=== PATIENT | female | born 1960 | race Caucasian/White ===

== ENCOUNTER 2016-10-30 22:43 | Inpatient (IN) | payer OTHER, BC ==
[~2016-10-30] VITALS: Ht 152.4 cm; Wt 60.1 kg
--- NOTE | ~2016-10-30 | WRIGHTHP ---
[place], [place] PATIENT HISTORY AND PHYSICAL EXAM [id number] #: [id number] ROOM: 314 DOCTOR: LAMBERTO YOON MD BIRTHDATE: [birth year] DOS: 10/31/2016 INITIAL PSYCHIATRIC EVALUATION. CHIEF COMPLAINT: "I'm just so depressed and anxious, I don't know what to do." HISTORY OF PRESENT ILLNESS: This is a 56-year-old white female who was sent from [facility]. The patient was just discharged from a psychiatric unit and went home and was absolutely overwhelmed per her report. She had not been sleeping or eating well. She is in constant pain. She reports that she is so depressed she just thinks of suicide and does not think that there is any way to go on. She is very anxious as well and very much pain ridden. She is admitted now to rule out organic factors, to stabilize on medication and to engage in individual and henriquez milieu activity. PAST PSYCHIATRIC HISTORY: Other than the previous psychiatric admission is unknown. The patient looks like she has been following through [facility]. An ORS report, however, shows her to be receiving multiple benzodiazepines from several physicians. This is something that will be dealt with later in her stay. MENTAL STATUS: The patient is alert and oriented. Mood is depressed with anxious overtones. There is no bruce or hypomania. There are no gross psychotic symptoms. Memory is intact. DIAGNOSES: Major depression, recurrent, severe; dysthymic disorder; and anxiety disorder, not otherwise specified. PLAN: I will discontinue her Trintellix and Abilify in lieu of Cymbalta 30 mg twice a day. She had been on Cymbalta in the past per her report, but was unclear of the dose. More often than not the dose of Cymbalta for outpatients tends to be low and I will push her aggressively to the high range. I will augment this currently with some Klonopin 0.5 t.i.d. in as much to prevent any withdrawal symptoms as it is to acutely treat her anxiety. I will augment the pain control with Zostrix high potency cream. I will defer other treatment of the pain to the hospitalist at this point. Will want her to sign a release of information giving us permission to talk to or her outpatient provider whoever that turns out to be, so we can bring to their attention her ORS report and we can plan proactively then in the future to prevent this from happening. We will engage her in individual and henriquez milieu activity with the plan to return home when psychiatrically stable. [place], [place] PATIENT HISTORY AND PHYSICAL EXAM NAME: TOSHA HALL UNIT #: [id number] ROOM: 314 DOCTOR: LAMBERTO YOON MD BIRTHDATE: [birth year] LAMBERTO YOON MD CM:HISPHYS:PATIENT HISTORY AND PHYSICAL EXAMINATION 3 1007 LAMBERTO YOON MD 10/31/16 1006 interface
--- NOTE | ~2016-10-30 | PR ---
[place], [place] PROGRESS NOTE NAME: TOSHA HALL UNIT #: [id number] ROOM: 315 DOCTOR: LAMBERTO YOON MD BIRTHDATE: [birth year] DOS: 11/02/2016 CHIEF COMPLAINT: "I am feeling better, except for the middle of the day it is really rough." SUMMARY OF THE VISIT: The patient was interviewed in the dining area. She engaged readily in conversation and reported to me that she is feeling better. Her mood is brighter and she is less anxious, except for the midday time, which she feels that the anxiety becomes overwhelmingly and she is ready to crawl out of her skin. She convincingly denies any medication side effects and states that she is not noticing any sedation, somnolence or any other side effects throughout the day. MENTAL STATUS: She is alert and oriented. Mood does seem to be trending towards euthymia. Affect is more appropriate. There are no symptoms of bruce or hypomania. There are no overt auditory or visual hallucinations. No delusions were voiced. No paranoia is present. Short, intermediate and long-term memories are intact. PLAN: I will maintain her Cymbalta dose at 30 mg in the morning and 60 mg at night. I will double her Klonopin dose from 0.5 mg 3 times a day to 1 mg 3 times a day, monitor for risk, benefit over the next 24-48 hours, engage in individual and henriquez milieu activity with the plan to return home or to the least restrictive environment when psychiatrically stable. LAMBERTO YOON MD CM:PNTRANS [id number] LAMBERTO YOON MD 11/02/16 1047 interface
--- NOTE | ~2016-10-30 | PR ---
[place], [place] PROGRESS NOTE [id number] #: [id number] ROOM: 315 DOCTOR: LAMBERTO YOON MD BIRTHDATE: [birth year] DOS: 11/01/2016 CHIEF COMPLAINT: "I feel a little better, thank you." SUMMARY OF THE VISIT: The patient was interviewed in the dining area where she was sitting and eating breakfast. She did report that she tolerated the medication changes well and is tolerating both the Klonopin and the Cymbalta without any side effects. She did report a slight improvement in her mood and pain control. She denies any other issues. MENTAL STATUS: She is alert and oriented. Mood does seem to be still depressed with some anxious, overtones, but she is trending toward improvement. There is no hypomania or bruce. There are no overt auditory or visual hallucinations. No delusions, no paranoia. Short term, intermediate and long-term memory are intact. PLAN: I will go ahead and increase Cymbalta to 30 mg in the morning and 60 mg at night. Continue to engage her in individual and henriquez milieu activity with the ultimate plan to discharge home when psychiatrically stable. LAMBERTO YOON MD CM:PNTRANS 234 LAMBERTO YOON MD 11/01/16 2341 interface
--- NOTE | ~2016-10-30 | PR ---
[place], [place] PROGRESS NOTE NAME: TOSHA HALL UNIT #: [id number] ROOM: 315 DOCTOR: LAMBERTO YOON MD BIRTHDATE: [birth year] DOS: 11/03/2016 CHIEF COMPLAINT: "I'm feeling better, but I'm still anxious." SUMMARY OF THE VISIT: The patient was interviewed as she sat in the dining area, eating her breakfast and interacting with female peers. She stopped engaging in conversation and reported that overall she sees a trend in improvement. She is feeling less depressed and more energized. She is still noticing some anxiety throughout the day and there is still some residual depression. She is open to allowing me to adjust her medications further. She is beginning to voice positive plans for the future and positive discharge plans. MENTAL STATUS: She is alert and oriented. Mood does seem to be strongly trending towards euthymia. Affect is much more appropriate. There are no symptoms suggestive of bruce or hypomania. There are no overt auditory or visual hallucinations. No delusions or paranoia are voiced. Memory for the most part is fully intact. PLAN: I will go ahead at this point in time and increase her Cymbalta to its maximum dose of 120 mg given in a 60 mg b.i.d. dosing. This should help both the depression and the anxiety. I will maintain her current Klonopin dose where it is. My plan ultimately should she be my outpatient, would be to discontinue the Klonopin within a matter of 2-4 weeks. We will continue to engage her in individual and henriquez milieu activity with the ultimate plan to return home when psychiatrically stable. LAMBERTO YOON MD CM:PNTRANS [id number] LAMBERTO YOON MD 11/04/16 0259 interface
--- NOTE | ~2016-10-30 | DS ---
[place], [place] DISCHARGE SUMMARY [id number] #: [id number] ROOM: 315 DOCTOR: LAMBERTO YOON MD BIRTHDATE: [birth year] DOS: 11/04/2016 CHIEF COMPLAINT: "I am just so depressed and anxious I don't know what to do." HISTORY OF PRESENT ILLNESS: This is a 56-year-old white female who was sent here to the Behavioral Health Care Unit at [facility] from [facility]. The patient was just discharged from a psychiatric unit and went home and was absolutely overwhelmed and started to feel suicidal. She reports that since her discharge, she has not been sleeping well or eating well. She is in constant pain. She is so depressed she thinks of suicide daily and does not think that there is any way to go on. She is very anxious and is also very much pain reddened. She is admitted now to rule out organic factors to stabilize on medication, to engage in individual and henriquez milieu activity, returning home when stable. PAST MEDICAL HISTORY: Remarkable for a lengthy history of depression and pain. SUMMARY OF HOSPITAL COURSE: The patient was admitted to the unit where her Trintellix and Abilify were discontinued in lieu of Cymbalta 30 mg twice daily. She was deliberately started on a higher dose because she reports having been on it before, but believes she was on a smaller dose. Very quickly the Cymbalta was increased from 30 mg twice a day to 30 mg in the morning and 60 mg at night and then ultimately to its target dose of 60 mg twice daily. Given her overriding anxiety, she was started on Klonopin 0.5 mg 3 times a day. This did help some, but she noticed that it did not carry her consistently through the day. Klonopin was eventually increased to 1 mg 3 times a day. With the combination of high dose Cymbalta and Klonopin, the patient noticed alleviation of her anxiety, a diminishment of her depression and alleviation of her pain. She was much more pleasant and conversant, was able to think positively about the future and voiced positive plans for her future. She was discharged then on November 04 to return home. She will have followup at [facility]. MENTAL STATUS AT DISCHARGE: The patient is alert and oriented to person, place and time. Mood is overwhelmingly bright, pleasant and conversant. Her speech rate and pattern is within normal limits. There is no hypomania or bruce. There are no auditory or visual hallucinations. Memory is intact. She convincingly denies suicidal thoughts, homicidal thoughts or any self-injurious thoughts. DIAGNOSES: Major depression, recurrent, severe; dysthymic disorder and anxiety disorder, not otherwise specified. PLAN: The patient is to return home. All of her prescriptions except the Klonopin have been e scribed. The Klonopin prescription has been printed. She will follow up at [facility] services. [place], [place] DISCHARGE SUMMARY [id number] UNIT #: [id number] ROOM: [facility] DOCTOR: LAMBERTO YOON MD BIRTHDATE: [birth year] LAMBERTO YOON MD CM:DISCHARG [id number] LAMBERTO YOON MD 11/04/162016 interface
[2016-10-30] MEDS ORDERED: ABILIFY5 MG PO (23:21)
[2016-10-30] MEDS ORDERED: KLONOPIN1 M1 PO (23:21)
[2016-10-30] MEDS ORDERED: REMERON45 M1 PO (23:22)
[2016-10-30] MEDS ORDERED: TRAZODONE100 MG PO (23:23)
[2016-10-30] MEDS ORDERED: PROTONIX40 MG PO (23:26)
[2016-10-30] MEDS ORDERED: Symbicort 160-4.5 mc INH (23:32)
--- NOTE | 2016-10-31 00:50 | NUR ---
TOSHA HALL a 56 year old F admitted via stretcher from the ADMITTING as a voluntary admission. Arrived on unit at 0050. ALLERGIES: VISTARIL. Vital signs are: 97.0-87-18 100/66. The client signed the following forms with stated understanding: Authorization For The Release of Medical Information, Clothing List, Consent to Voluntary Admission and Hospitalization, Consent and Release Forms/Receipt of Rights, Acknowledgement of Advance Directive Information, Behavioral Health Consent Form, and Informed Consent of Medications. Admitted under the services of [facility]. A search was conducted and hazardous articles were removed. Client was oriented to the unit. RHONDA LE
[2016-10-31 01:13] VITALS: BP 100/66
[2016-10-31] MEDS ORDERED: ESTRADIOL1 MG PO (01:16)
[2016-10-31] MEDS ORDERED: TERCONAZOLE20 GM V (01:16)
--- NOTE | 2016-10-31 02:10 | NUR ---
DR. ROGERS MADE AWARE OF NEW ADMISSION CONSULT FOR MED MANAGMENT UNDER DR. SMITH. MED REC AND MEDICAL HISTORY COMPLETED.
--- NOTE | 2016-10-31 06:11 | NUR ---
PT SLEPT 4 HOURS WITH OUT INTURRUPTION. COOPERATIVE WITH ASSESSMENT WITH ANXIOUS AND IRRITABLE MOOD. PT CONCERNED WITH NOT HAVING KLONIPIN ORDERED. ORIENTED TO ROOM AND UNIT RULES.
[2016-10-31 06:45] LABS: BASO % 0.2 % (0.0-1.0); EOS # 0.2 10*3/uL (0.0-0.4); EOS % 2.5 % (1.0-4.0); HEMATOCRIT 42.1 % (37.0-47.0); HEMOGLOBIN 13.9 g/dl (12.0-16.0); LYMPH # 1.7 10*3/uL (1.3-4.4); LYMPH % 26.5 % (27.0-41.0); MEAN CELL VOLUME 90.9 fl (81.0-99.0); MEAN PLATELET VOLUME 9.5 fl (9.6-12.3); MONO # 0.5 10*3/uL (0.1-1.0); MONO % 7.7 % (3.0-9.0); NEUT % 62.9 % (47.0-73.0); PLATELET COUNT AUTOMATED 223 10*3/uL (130-400); RED BLOOD COUNT 4.63 10*6/uL (4.10-5.10); RED CELL DISTRI WIDTH 13.4 % (0-14.5); WHITE BLOOD COUNT 6.3 10*3/uL (4.8-10.8)
[2016-10-31 07:31] LABS: ALBUMIN 3.2 gm/dl (3.1-4.5); ALKALINE PHOSPHATASE 112 U/L (45-117); BUN 16 mg/dl (7-24); CHLORIDE 108 mmol/L (98-107); CHOLESTEROL 230 mg/dL (<200); CREATININE 0.72 mg/dL (0.55-1.02); HDL CHOLESTEROL 41 mg/dl (40-60); LDL CHOLESTEROL 146 mg/dL (9-159); POTASSIUM 3.9 mmol/L (3.5-5.1); SGOT/AST 22 IU/L (3-35); SGPT/ALT 55 U/L (12-78); SODIUM 143 mmol/L (136-145); TOTAL PROTEIN 7.1 gm/dL (6.4-8.2); TRIGLYCERIDES 213 mg/dl (<150); VLDL CHOLESTEROL 43 mg/dL (6-40)
[2016-10-31 08:05] VITALS: BP 103/68
[2016-10-31 08:07] LABS: VITAMIN D, 25-HYDROXY 31.3 ng/mL (30-100)
--- NOTE | 2016-10-31 08:17 | NUR ---
[facility] HE FOLLOWING: DR. YOON, SHEEP AND WHEAT FARMER, RNs, SWs, AT AND DIRECTOR. DR. YOON REPORTES THAT PT IS SEEN AT [facility]. dR.. YOON WOULD LIKE THE MEDICAL RECORDE IF PT WILL SIGN A RELEASE. PENDING DISCHARGE FOR MONDAY.
--- NOTE | 2016-10-31 11:20 | NUR ---
Excerise/Trivia Excercise helps with mobility,circulation and staying active,trivia helps with memory,socialization, concentration and thinkinPatient did attend group this morning as well as participated. Patient seemed withdrawn not talking or socializing with others. Patient "needed" to leave the room for a bit to talk to someone about her meds. Patient came back into the room soon after and again started participating in the game, but still with drawn from others
--- NOTE | 2016-10-31 14:30 | NUR ---
ALERT AND ORIENTED X4. MOOD IS DEPRESSED WITH FLAT AFFECT. VOICES FLEETING SUICIDAL THOUGHTS THAT "COME AND GO" WITHOUT A PLAN. VERBALLY CONTRACTED FOR SAFETY. STATES "A LITTLE BIT" IN REGARDS TO SLEEP LAST NIGHT. NO HALLUCINATIONS OR DELUSIONS NOTED. NO S/S ANXIETY NOTED, HOWEVER, PT STATES "IM JUST SO NERVOUS" THEN MORNING AFTER ASKING FOR "KLONOPIN." EDUCATED PATIENT OF NEW MEDICATION CHANGES. PT VERBALIZES UNDERSTANDING. POSTIVIVE PEERS INTERACTIONS NOTED. WILL CONTINUE TO ENCOURAGE ATTENDENCE AND PARTICIPATION AT GROUP THERAPY. WILL CONTINUE Q15 MIN SAFETY OBSERVATION CHECKS PER ORDERS.
[2016-10-31 19:55] VITALS: BP 100/85
--- NOTE | 2016-11-01 00:07 | NUR ---
24 HR chart check completed.
--- NOTE | 2016-11-01 06:30 | NUR ---
PT HAS BEEN OBSERVED ON Q 15 MIN & HAS SLEPT QUIETLY THROUGHOUT THE SHIFT PAST 2244.
[2016-11-01 08:00] VITALS: BP 98/68
--- NOTE | 2016-11-01 08:12 | NUR ---
Fall Craft This helps patient with mobility, concentration,thinking socializing and self esteem. Patient did attend group as well as participate. Patient is withdrawn from other patients not socializing at all. Patient will speak to me if need be and will speak if spoken to but does not initiated conversation with her peers
--- NOTE | 2016-11-01 13:41 | NUR ---
Reading/Reminiscing This helps with memory,concentration, thinking socialization Patient did attend group as well as participated. Patient contributed many stories of growing up amonst a tight knit family and andre. patient also enjoyed group and remembering things from the past
--- NOTE | 2016-11-01 16:16 | NUR ---
MOOD IS STABLE AND EUTHYMIC. HAS NOT VOICED ANY SI/HI. AFFECT IS BRIGHTER. DEPRESSION IS LESS SO TODAY. MEDICATION COMPLIANT WITHOUT DIFFFICULTY. ATTENDING AND PARTICIPATING IN GROUP THERAPIES. UP ALL DAY IN DINNING ROOM. POSITIVE PEER INTERACTIONS. DENIES ANY SENSORY DISTURBANCES AND NONE ARE NOTED. APPETITE GOOD FOR MEALS.
[2016-11-01 20:20] VITALS: BP 122/75
--- NOTE | 2016-11-01 22:40 | NUR ---
24 HR chart check completed.
--- NOTE | 2016-11-02 06:04 | NUR ---
PT HAS BEEN OBSERVED ON Q 15 MIN CHECKS & HAS SLEPT QUIETLY THROUGHOUT THE SHIFT PAST 2244.
--- NOTE | 2016-11-02 08:14 | NUR ---
Who Am I?/Positive traits This group helps patients with self esteem, Concentration, thinking and socializing Patient did attend group as well as participated. This project was to be about what the patient thought of themselves. Patient is very focused on the of her nephew and stated she was doing the project about him. I explained that this was about the patient not other people patient stated "well my Nephew and I are alike." Patient was very encouraging to the other patients stating positive traits that she thought of them. Patient does not seem to think of herself in a positive light
[2016-11-02 08:17] VITALS: BP 110/75
--- NOTE | 2016-11-02 08:40 | NUR ---
Treatment Team was held with the following: Dr. Galeana. SHEET METAL INSTALLER, Medical Student, RN, AT, and SW. Dr. Galeana requesting ron t Pt sign disclosure form for [facility] to alert about Pt shoppning for benzos. Dr. Galeana only writing script for 2 weeks. Pending discharge for Monday.
--- NOTE | 2016-11-02 11:49 | NUR ---
Mariah Ross in to see Anca and orders were received to obtain UA for testing. Specimen obtained and sent to lab @ this time.
[2016-11-02 12:04] LABS: BILIRUBIN NEGATIVE (NEGATIVE); BLOOD NEGATIVE (NEGATIVE); CLARITY CLEAR (CLEAR); COLOR YELLOW (YELLOW); GLUCOSE NEGATIVE (NEGATIVE); KETONE NEGATIVE (NEGATIVE); LEUKO ESTERASE NEGATIVE (NEGATIVE); NITRITE NEGATIVE (NEGATIVE); PH 5.5 (5.0-9.0); SPECIFIC GRAVITY <= 1.005 (1.005-1.030); UROBILINOGEN 0.2 E.U./dl (0.2-1.0)
[2016-11-02 12:15] LABS: BACTERIA TRACE; WBC 0-2 wbc/hpf (0-5)
--- NOTE | 2016-11-02 13:26 | NUR ---
Exercise/Games Exercise helps with mobiliy and circulation and our game was "Choices" wich helps with concentration,thinking,and socializing Patient did attend group as well as participated. Today patient did interact with other patients and was not so withdrawn from others as she previously was. Patient was laughing and talking about the Choice they had to make
--- NOTE | 2016-11-02 16:32 | NUR ---
Mood is depressed. On 1:1 interaction Anca is verbal discussing her current feelings. She denies any thoughts of self harm @ this time. She does, however, admit to experiencing thoughts to harm herself prior to her admission. She states that she feels that her medications are helping and is hopeful that these will prove to be beneficial to her. Discussed ways to cope with current stressors and she states understanding. Energy level is low to moderate and she has been observed attending unit activities throughout the day. Appetite is good for meals. Refer to [facility] flowsheet for specific monitoring.
--- NOTE | 2016-11-02 16:43 | NUR ---
Voicing complaints of constipation and was medicated with MOM 30 ml's po @ this time.
[2016-11-02 20:00] VITALS: BP 134/83
--- NOTE | 2016-11-02 22:00 | NUR ---
PT STATED RELIEF OF CONSTIPATION WITH MOM GIVEN EARLIER.
--- NOTE | 2016-11-03 00:05 | NUR ---
24 HR chart check completed.
--- NOTE | 2016-11-03 06:48 | NUR ---
PT HAS BEEN OBERVED ON Q 15 MIN CHECKS & HAS SLEPT QUIETLY THROUGHOUT THE SHIFT PAST 2200.
[2016-11-03 08:15] VITALS: BP 103/70
[2016-11-03 08:23] VITALS: BP 103/70
--- NOTE | 2016-11-03 10:00 | NUR ---
FIDENCIO SET UP FOLLOW UP APPOINTMENTS WITH SOFÍA JOHNSTON WED AT 8:30AM AND DR. HSU. AT 11AM.
--- NOTE | 2016-11-03 11:26 | NUR ---
Craft/Being Afraid 11/02/2016 Afternoon This craft included a saying about being afraid. Patient is able to discuss fears they have and any other feelings they may want to didcuss. Patient did attend group as well as participate. Patient did not specifically state any fears she had. Patient concentrated on her craft. Patient tended to avoid any prompting to discuss feelings
--- NOTE | 2016-11-03 16:58 | NUR ---
Carey is compliant with prescribed medications. Appropriate in conversation with staff during 1:1 interaction. Mood is depressed, however, she reports that she is feeling better. Energy level is moderate and she has attended scheduled unit activities. Noted to exhibit a supportive attitude with peers. Denies any current thoghts of self harm. Appetite is good for meals. Dr. Galeana in to see her with orders received. Refer to [facility] flowsheet for specific monitoring.
[2016-11-03 20:00] VITALS: BP 112/70
--- NOTE | 2016-11-03 21:30 | NUR ---
PATIENT IN BEDROOM AT THIS TIME. PATIENT MEDICATION COMPLIANT. VOICES NO COMPLAINTS OF PAIN OR DISCOMFORT AT THIS TIME
--- NOTE | 2016-11-04 04:34 | NUR ---
24 HR chart check completed.
--- NOTE | 2016-11-04 05:50 | NUR ---
Q 15 MINUTE CHECKS MAINTAINED. SLEPT > 6 HRS THROUGHOUT SHIFT
--- NOTE | 2016-11-04 07:46 | NUR ---
UP SITTING IN THE DINING ROOM
--- NOTE | 2016-11-04 08:06 | NUR ---
11/03/2016 Morning: Trivia This helps the patient with thinking,concentration,self esteem, socializing and lifting their spirits Patient did attend group as well as participated. Patient is very good at riddles and trivia and enjoys this group. Patient jumped in answering questions,laughing and interacting with other patients
[2016-11-04 08:07] VITALS: BP 115/72
[2016-11-04] MEDS ORDERED: CLONAZEPAM1 MG PO (08:21)
[2016-11-04] MEDS ORDERED: DULOXETINE HCL60 MG PO ×2 (08:21)
--- NOTE | 2016-11-04 10:00 | NUR ---
NOTIDED DR PLATT OF PT BEING DISCHARGED
--- NOTE | 2016-11-04 13:05 | NUR ---
Exercise/Roslyn Hole This helps with movement,circulation, thinking,concentration, self esteem and sosializing Patient did attend group as well as participated. Patient helped out by keeping score, Patient encouraged other patients and interacted well. Patient laughed and talked with other patients also. Patient very upbeat and happy about leaving today
--- NOTE | 2016-11-07 11:25 | NUR ---
[employer] Note: FAXED discharge information to [facility] in [place], [place] on 11/04/16. Mailed this information to Dr. Mikey Parker in [place], [place] 11/07/16.
== END 2016-11-04 13:12 | disposition home or self-care (01) | DRG 885 ==
LOC: 3N 22:43
PROVIDERS: Nurse Practitioner Adult Health; Registered Nurse; ADMIT Psychiatry & Neurology Psychiatry
DX: F33.2 Major depressive disorder, recurrent severe without psychotic features (principal); B37.0 Candidal stomatitis; E44.0 Moderate protein-calorie malnutrition; R45.851 Suicidal ideations; E83.51 Hypocalcemia; F34.1 Dysthymic disorder; F41.9 Anxiety disorder, unspecified; J44.9 Chronic obstructive pulmonary disease, unspecified; B37.3 Candidiasis of vulva and vagina; Z72.0 Tobacco use; Z71.6 Tobacco abuse counseling; Z68.25 Body mass index [BMI] 25.0-25.9, adult; R73.03 Prediabetes; E66.3 Overweight; E78.00 Pure hypercholesterolemia, unspecified